=== PATIENT | male | born 2000 ===

== ENCOUNTER 2024-04-01 01:48 | Emergency (ER) | payer OTHER ==
[~2024-04-01] VITALS: Ht 175.3 cm; Wt 78.0 kg
[2024-04-01 01:58] VITALS: TEMP 98.7
[2024-04-01] MEDS: SODIUM CHLORIDE 0.9% 1,000 ML IV ONE (02:04)
[2024-04-01 02:12] LABS: BASOPHILS % (AUTO) 0.4 % (0.0-2.0); EOSINOPHILS % (AUTO) 0.7 % (1.0-6.0); HEMATOCRIT 39.2 % (41-53); LYMPHOCYTES # (AUTO) 2.4 K/uL (1.0-4.8); LYMPHOCYTES % (AUTO) 25.9 % (22.0-44.0); MEAN CORPUSCULAR HEMOGLOBIN 29.2 pg (26.0-34.0); MEAN CORPUSCULAR HGB CONC 33.2 G/dL (31.0-37.0); MEAN CORPUSCULAR VOLUME 88 fL (80-100); MONOCYTES # (AUTO) 0.5 K/uL (0.1-1.0); NEUTROPHILS # (AUTO) 6.1 K/uL (1.8-7.7); PLATELET COUNT (AUTO) 208 K/uL (150-450); RED BLOOD CELL COUNT(AUTO) 4.46 MIL/uL (4.50-5.90); RED CELL DISTRIBUTION WIDTH 13.2 % (11.5-14.5); WHITE BLOOD COUNT (AUTO) 9.2 K/uL (4.5-11.0)
[2024-04-01 02:22] LABS: ANION GAP 7 mmol/L (8-16); CARBON DIOXIDE 29 mmol/L (22-29); CHLORIDE 101 mmol/L (98-107); CREATININE 0.92 mg/dL (0.60-1.30); GLOMERULAR FILTR. RATE CALC > 60 mL/min (>60); GLUCOSE,RANDOM 136 mg/dL (70-110); SODIUM SERUM 137 mmol/L (136-145); UREA NITROGEN, BLOOD 10 mg/dL (7-18)
[2024-04-01 02:24] LABS: ALCOHOL, BLOOD (SERUM) 223 mg/dL (0-10)
[2024-04-01 02:27] LABS: POTASSIUM 2.9 mmol/L (3.5-5.1)
[2024-04-01] MEDS: POTASSIUM CHL 10 MEQ/WATER 50 ML IV SCH (04:12)
[2024-04-01 07:46] VITALS: BP 101/61; PULSE 76; RESP 13
== END 2024-04-01 08:20 | disposition home or self-care (01) ==
LOC: EMS 01:48
DX: F10.129 Alcohol abuse with intoxication, unspecified (principal); R11.10 Vomiting, unspecified; Z79.899 Other long term (current) drug therapy; Y90.6 Blood alcohol level of 120-199 mg/100 ml
CPT/HCPCS: 99283; 96360; 80048; 85025; 36415; G0480; J3480; J7030